=== PATIENT | male | born 1985 | race Two or more races ===

== ENCOUNTER 2020-11-26 08:15 | Emergency (ER) | payer OTHER ==
[~2020-11-26] VITALS: Ht 182.9 cm; Wt 111.1 kg
[2020-11-26 09:09] VITALS: BP 113/77
[2020-11-26] MEDS ORDERED: cefTRIAXone SOD 1,000 MG VL IM ONE (09:30)
[2020-11-26] MEDS ORDERED: DexAMETHasone SOD PHOS 10MG/1ML VIAL INJ IM ONE (09:30)
== END 2020-11-26 11:21 | disposition home or self-care (01) ==
LOC: ER 08:15
DX: U07.1 COVID-19 (principal); J12.82 Pneumonia due to coronavirus disease 2019
CPT/HCPCS: 71045; 96372; 99284; J0696; J1100